=== PATIENT | male | born 1995 | race Caucasian/White ===

== ENCOUNTER 2019-06-28 14:18 | Emergency (ER) | payer BC ==
[2019-06-28 15:17] VITALS: BP 119/67
--- NOTE | 2019-06-28 15:45 | UC ---
Respiratory Complaint HPI - HPI Summary HPI Summary: 24-year-old male presenting with nasal congestion, sore throat, and chest congestion 3 days. Notes cough productive of yellow sputum 2 days. Notes shortness of breath intermittently. States sore throat improving. Denies fever and chills. Denies nausea and vomiting. Notes history of asthma but denies need for inhaler since becoming sick. Denies concern for strep throat. Does note that he was also sick on 06/14 with URI symptoms but that they resolved within a couple days. - History of Current Complaint Chief Complaint: UCRespiratory Stated Complaint: COUGH CONGESTION RUNNY NOSE Hx Obtained From: Patient Pain Intensity: 0 - Allergies/Home Medications Allergies/Adverse Reactions: Allergies Allergy/AdvReac Type Severity Reaction Status Date / Time No Known Allergies Allergy Verified 06/28/19 15:06 Home Medications: Home Medications Asthma Inhaler 2 puff INH Q12H PRN 06/28/19 [History Confirmed 06/28/19] D-Methorphan/PE/Acetaminophen [Vicks Dayquil Cold & Flu] 2 cap PO ONCE PRN 06/28 [History Confirmed 06/28/19] Ibuprofen TAB* [Advil TAB*] 200 mg PO ONCE PRN 06/28/19 [History Confirmed 06/28] PMH/Surg Hx/FS Hx/Imm Hx Previously Healthy: Yes Respiratory History: Asthma - Surgical History Surgical History: None - Family History Known Family History: Positive: Non-Contributory - Social History Alcohol Use: Occasionally Substance Use Type: None Smoking Status (MU): Never Smoked Tobacco Review of Systems All Other Systems Reviewed And Are Negative: Yes Constitutional: Positive: Negative. Negative: Fever, Chills ENT: Positive: Sore Throat - mild, improving, Nasal Discharge, Sinus Congestion. Negative: Ear Ache, Sinus Pain/Tenderness Respiratory: Positive: Shortness Of Breath - intermittently, Cough - productive yellow sputum x2 days Cardiovascular: Positive: Negative Gastrointestinal: Positive: Negative. Negative: Vomiting, Nausea Musculoskeletal: Positive: Negative. Negative: Myalgia Neurological: Positive: Negative Physical Exam Triage Information Reviewed: Yes Appearance: Well-Appearing, No Pain Distress, Well-Nourished Vital Signs: Initial Vital Signs Temp 98.2 F 06/28/19 15:12 Pulse 69 06/28/19 15:12 Resp 20 06/28/19 15:12 BP 119/67 06/28/19 15:12 Pulse Ox 99 06/28/19 15:12 Vital Signs Reviewed: Yes Eyes: Positive: Conjunctiva Clear ENT: Positive: Hearing grossly normal, Pharyngeal erythema, Nasal congestion, TMs normal, Uvula midline. Negative: Nasal drainage, Tonsillar swelling, Tonsillar exudate, Sinus tenderness Neck exam: Normal Neck: Positive: Supple, Nontender, No Lymphadenopathy Respiratory Exam: Normal Respiratory: Positive: Lungs clear, Normal breath sounds, No respiratory distress, No accessory muscle use. Negative: Crackles, Rhonchi, Stridor, Wheezing Cardiovascular Exam: Normal Cardiovascular: Positive: RRR, No Murmur. Negative: Tachycardia Neurological: Positive: Alert Psychological: Positive: Age Appropriate Behavior Skin Exam: Normal Respiratory Course/Dx - Course Course Of Treatment: Discussed viral illness and symptomatic treatment with patient. Patient declined testing for influenza. Educated on s/s of worsening illness and instructed to go to ED if any red flags occur. Patient voiced understanding and agreed with treatment plan. VS normal and lung sounds clear in all lung morales. - Differential Dx/Diagnosis Differential Diagnosis/HQI/PQRI: Asthma, Influenza Provider Diagnosis: Viral URI, Acute bronchitis Discharge ED - Sign-Out/Discharge Documenting (check all that apply): Patient Departure All imaging exams completed and their final reports reviewed: No Studies - Discharge Plan Condition: Stable Disposition: HOME Patient Education Materials: Upper Respiratory Infection (ED), Acute Bronchitis (ED) Referrals: Care [facility] [Outside] - If Needed [facility] [place] REFERRAL [Outside] - If Needed Additional Instructions: As discussed, your symptoms are most likely caused by a virus and should resolve without treatment. Continue use of your inhaler as directed for your shortness of breath. You may continue to take over the counter cough and cold medications for your cold symptoms. Get plenty of rest and increase your fluid intake. Follow up with your primary care doctor if your symptoms do not resolve within 7 days. Go to the emergency room with any new or worsening symptoms, including fever higher than 102, increased difficulty breathing, or nausea and vomiting. - Billing Disposition and Condition Condition: STABLE Disposition: Home
== END 2019-06-28 15:59 | disposition home or self-care (01) ==
LOC: UCCORT 14:18
DX: J06.9 Acute upper respiratory infection, unspecified (principal); J20.9 Acute bronchitis, unspecified; J45.909 Unspecified asthma, uncomplicated
CPT/HCPCS: 99201; G0463